=== PATIENT | female | born 1955 | race African-American/Black ===

== ENCOUNTER 2017-09-04 10:53 | Emergency (ER) | payer OTHER ==
[~2017-09-04] VITALS: Ht 162.6 cm; Wt 73.0 kg
[~2017-09-04 10:53] MED LIST: ALPR2TAB97 PO; AMLO10TA4 PO; ASPI-864 PO; CARI350T PO; DIAZ10TA PO; FAMO40TA7 PO; LIP40 PO; METF500T4 PO; NITR0.4T SL
[2017-09-04] MEDS ORDERED: HYDROCODONE/ACETAMINOPHEN 5/325MG TABLET PO ONE (12:30)
[2017-09-04 13:00] VITALS: BP 155/79
== END 2017-09-04 14:44 | disposition home or self-care (01) ==
LOC: ER 10:53
DX: M79.662 Pain in left lower leg (principal); G89.29 Other chronic pain; K21.9 Gastro-esophageal reflux disease without esophagitis; J44.9 Chronic obstructive pulmonary disease, unspecified; I10 Essential (primary) hypertension; F14.10 Cocaine abuse, uncomplicated; F12.10 Cannabis abuse, uncomplicated; F17.200 Nicotine dependence, unspecified, uncomplicated; Z79.82 Long term (current) use of aspirin; Z90.49 Acquired absence of other specified parts of digestive tract; Z90.710 Acquired absence of both cervix and uterus; Z98.890 Other specified postprocedural states
CPT/HCPCS: 73552; 73562; 73590; 99284

== ENCOUNTER 2018-05-09 15:46 | Emergency (ER) | payer OTHER ==
[~2018-05-09] VITALS: Ht 167.6 cm; Wt 84.0 kg
[~2018-05-09 15:46] MED LIST changes: -AMLO10TA4 PO; +ATEN50TA PO; -DIAZ10TA PO; +HYDR12.529 PO; +LORA2VIA33 PO; -METF500T4 PO; +METF500T6 PO; +OXYC30TA89 PO
[2018-05-09] MEDS ORDERED: NITROGLYCERIN 0.4MG TABLET SL SL PRN (16:30)
[2018-05-09] MEDS ORDERED: ASPIRIN 325MG EC TABLET PO ONE (16:30)
[2018-05-09] MEDS ORDERED: ONDANSETRON HCL 4MG/2ML VIAL IV ONE (16:30)
[2018-05-09 16:41] LABS: CHLORIDE 108 mEq/L (98-107)
[2018-05-09 16:42] LABS: BASOPHILS % 0.8 % (0.0-2.0); EOSINOPHILS % 0.1 % (0.0-5.0); HEMATOCRIT. 41.2 % (36.0-48.0); HEMOGLOBIN. 14.2 g/dL (12.0-16.0); LYMPHOCYTES % 42.6 % (20.0-50.0); MEAN CORPUSCULAR VOLUME 87.4 fL (81.0-99.0); MEAN PLATELET VOLUME 10.5 fl (7.4-10.4); MONOCYTES % 8.7 % (2.0-8.0); NEUTROPHILS % 47.8 % (40.0-76.0); PLATELET 189 x1000/uL (130-400); RED BLOOD CELL COUNT 4.72 mill/uL (4.2-5.4)
[2018-05-09 16:44] LABS: INR 1.1; PARTIAL THROMBOPLASTIN TIME 29.1 sec (23.4-31.0); PROTHROMBIN TIME 11.9 sec (9.4-11.6)
[2018-05-09] MEDS ORDERED: MORPHINE SULFATE 4 MG/ML CPJ (NOT FOR IM USE) IV ONE (16:45)
[2018-05-09 17:34] VITALS: BP 211/111
== END 2018-05-10 08:47 | disposition short-term general hospital (02) ==
LOC: ER 15:46
DX: I21.3 ST elevation (STEMI) myocardial infarction of unspecified site (principal); E78.00 Pure hypercholesterolemia, unspecified; E11.9 Type 2 diabetes mellitus without complications; I10 Essential (primary) hypertension; F17.200 Nicotine dependence, unspecified, uncomplicated; Z88.6 Allergy status to analgesic agent; Z79.82 Long term (current) use of aspirin; Z90.49 Acquired absence of other specified parts of digestive tract; Z92.29 Personal history of other drug therapy; Z91.048 Other nonmedicinal substance allergy status; Z96.659 Presence of unspecified artificial knee joint
CPT/HCPCS: 36415; 71045; 80053; 83690; 84484; 85025; 85610; 85730; 93005; 96374; 96375; 99291; J2270; J2405; Z7610

== ENCOUNTER 2018-08-10 09:43 | Emergency (ER) | payer OTHER ==
[~2018-08-10] VITALS: Ht 170.2 cm; Wt 76.0 kg
[~2018-08-10 09:43] MED LIST changes: -CARI350T PO; +S350 PO
[2018-08-10] MEDS ORDERED: MORPHINE SULFATE 4 MG/ML CPJ (NOT FOR IM USE) IV STA (10:21)
[2018-08-10] MEDS ORDERED: MAGNESIUM/ALUMINUM HYDROXIDE/SIMETHICONE 30ML UDC PO STA (10:21)
[2018-08-10] MEDS ORDERED: ONDANSETRON HCL 4MG/2ML INJ IV STA (10:21)
[2018-08-10 10:39] LABS: HEMATOCRIT. 40.7 % (36.0-48.0); HEMOGLOBIN. 13.7 g/dL (12.0-16.0); LYMPHOCYTES % 45.4 % (20.0-50.0); MEAN CORPUSCULAR HEMOGLOBIN 29.7 pg (28.0-32.0); MEAN CORPUSCULAR VOLUME 88.4 fL (81.0-99.0); MEAN PLATELET VOLUME 10.1 fl (7.4-10.4); MONOCYTES % 8.3 % (2.0-8.0); NEUTROPHILS % 45.3 % (40.0-76.0); PLATELET 226 x1000/uL (130-400); RED CELL DISTRIBUTION WIDTH 15.1 % (11.6-14.6)
[2018-08-10 10:45] LABS: CHLORIDE 108 mEq/L (98-107)
[2018-08-10 10:46] LABS: CLARITY URINE CLEAR (CLEAR); COLOR URINE YELLOW (YELLOW); KETONES URINE NEGATIVE (NEGATIVE); LEUKOCYTE ESTERASE URINE NEGATIVE (NEGATIVE); NITRITE URINE NEGATIVE (NEGATIVE); OCCULT BLOOD URINE NEGATIVE (NEGATIVE); PROTEIN URINE NEGATIVE (NEGATIVE)
[2018-08-10 10:46] LABS: PROTHROMBIN TIME 10.5 sec (9.1-11.1)
[2018-08-10] MEDS ORDERED: KETOROLAC 15MG/ML VIAL IV ONE (11:45)
[2018-08-10] MEDS ORDERED: LORAZEPAM 2MG/ML CPJ IV ONE (12:15)
[2018-08-10] MEDS ORDERED: HYDROCODONE/ACETAMINOPHEN 5/325MG TABLET PO ONE ×2 (14:30)
[2018-08-10] MEDS ORDERED: HYDRALAZINE 20MG/ML VIAL IV ONE (14:45)
[2018-08-10 15:09] VITALS: BP 198/96
[2018-08-10] MEDS ORDERED: NITROGLYCERIN 0.4MG TABLET SL SL ONE (15:15)
== END 2018-08-10 15:13 | disposition home or self-care (01) ==
LOC: ER 09:43
DX: R10.32 Left lower quadrant pain (principal); R11.2 Nausea with vomiting, unspecified; R05 Cough; R03.0 Elevated blood-pressure reading, without diagnosis of hypertension; I25.2 Old myocardial infarction; Z95.5 Presence of coronary angioplasty implant and graft
CPT/HCPCS: 36415; 71045; 74176; 80053; 81003; 83690; 84484; 85025; 85610; 93005; 96374; 96375; 99285; J1885; J2060; J2270; J2405; Z7610

== ENCOUNTER 2019-06-15 11:31 | Emergency (ER) | payer OTHER ==
[~2019-06-15] VITALS: Ht 167.6 cm; Wt 73.0 kg
[~2019-06-15 11:31] MED LIST changes: -ATEN50TA PO; -FAMO40TA7 PO; -LORA2VIA33 PO; -METF500T6 PO
[2019-06-15] MEDS ORDERED: ASPIRIN 81MG TABLET PO ONE (12:00)
[2019-06-15 12:23] LABS: BASOPHILS % 0.4 % (0.0-2.0); EOSINOPHILS % 0.3 % (0.0-5.0); HEMATOCRIT. 40.6 % (36.0-48.0); HEMOGLOBIN. 13.9 g/dL (12.0-16.0); LYMPHOCYTES % 46.1 % (20.0-50.0); MEAN CORPUSCULAR HEMOGLOBIN 30.5 pg (28.0-32.0); MEAN CORPUSCULAR VOLUME 89.1 fL (81.0-99.0); MEAN PLATELET VOLUME 10.9 fl (7.4-10.4); MONOCYTES % 6.5 % (2.0-8.0); NEUTROPHILS % 46.7 % (40.0-76.0); PLATELET 200 x1000/uL (130-400); RED BLOOD CELL COUNT 4.56 mill/uL (4.2-5.4); RED CELL DISTRIBUTION WIDTH 13.9 % (11.6-14.6)
[2019-06-15 12:28] LABS: CHLORIDE 108 mEq/L (98-107)
[2019-06-15] MEDS ORDERED: ONDANSETRON HCL 4MG/2ML INJ IV ONE (12:30)
[2019-06-15] MEDS ORDERED: MORPHINE SULFATE 4 MG/ML CPJ (NOT FOR IM USE) IV ONE (12:30)
[2019-06-15] MEDS ORDERED: HYDRALAZINE 20MG/ML VIAL IV ONE (12:45)
[2019-06-15 12:52] VITALS: BP 222/79
== END 2019-06-15 13:41 | disposition short-term general hospital (02) ==
LOC: ER 11:53
DX: I21.3 ST elevation (STEMI) myocardial infarction of unspecified site (principal); I16.1 Hypertensive emergency; E87.6 Hypokalemia; R79.89 Other specified abnormal findings of blood chemistry; I11.9 Hypertensive heart disease without heart failure; E78.5 Hyperlipidemia, unspecified; I25.10 Atherosclerotic heart disease of native coronary artery without angina pectoris; F17.200 Nicotine dependence, unspecified, uncomplicated; Z90.710 Acquired absence of both cervix and uterus; Z95.5 Presence of coronary angioplasty implant and graft; Z91.041 Radiographic dye allergy status; Z88.6 Allergy status to analgesic agent; Z79.899 Other long term (current) drug therapy
CPT/HCPCS: 36415; 71045; 80053; 83880; 84484; 85025; 93005; 96374; 96375; 99291; J0360; J2270; J2405; Z7610

== ENCOUNTER 2025-03-25 21:59 | Inpatient (IN) | payer MEDICARE, MEDICAID ==
[~2025-03-25] VITALS: Ht 160 cm; Wt 73.5 kg
[~2025-03-25 21:59] MED LIST changes: +ALBU05 IH; -ALPR2TAB97 PO; +AMLO10TA80 PO; +AMOX1TAB16 MT; +BENA40TA91 PO; +CYCL10TA21 PO; +ETOMIDATE 2MG/ML 10ML VIAL IV ONE; -HYDR12.529 PO; -LIP40 PO; +MAGN200T5 PO; +METF-414 PO; -NITR0.4T SL; +OMEP40CA20 PO; +OXYC-582 MT; -OXYC30TA89 PO; +P20 PO; +RISP2 PO; -S350 PO; +TRAZ-251 PO
[2025-03-25] MEDS: FUROSEMIDE 40MG/4ML VIAL IV ONE (23:04)
[2025-03-25] MEDS: HYDRALAZINE 20MG/ML VIAL IV ONE (23:05)
[2025-03-25 23:07] LABS: BASOPHILS % 0.6 % (0.0-2.0); DIFFERENTIAL COMMENT 0; HEMATOCRIT. 47.5 % (36.0-48.0); HEMOGLOBIN. 15.5 g/dL (12.0-16.0); LYMPHOCYTES % 35.2 % (20.0-50.0); MEAN CORPUSCULAR HEMOGLOBIN 28.8 pg (28.0-32.0); MEAN CORPUSCULAR HGB CONC 32.5 g/dL (31.0-37.0); MEAN CORPUSCULAR VOLUME 88.6 fL (81.0-99.0); MEAN PLATELET VOLUME 9.9 fl (7.4-10.4); MONOCYTES % 9.7 % (2.0-8.0); NEUTROPHILS % 54.5 % (40.0-76.0); PLATELET 185 x1000/uL (130-400); RED BLOOD CELL COUNT 5.36 mill/uL (4.2-5.4); RED CELL DISTRIBUTION WIDTH 17.2 % (11.6-14.6)
[2025-03-25] MEDS: METHYLPREDNISOLONE SOD SUCC 125MG/2ML (ACT-O-VIAL) IV STA (23:09)
[2025-03-25 23:13] LABS: CHLORIDE 106 mEq/L (98-107); POTASSIUM 3.7 mEq/L (3.5-5.1); SODIUM 144 mEq/L (136-145)
[2025-03-25 23:14] LABS: CARBON DIOXIDE 32 mEq/L (21-32)
[2025-03-25 23:15] LABS: CALCIUM 10.4 mg/dL (8.7-10.4)
[2025-03-25 23:19] LABS: CREATININE 0.8 mg/dL (0.6-1.0); GLUCOSE 163 mg/dL (70-105); UREA NITROGEN BLOOD 13 mg/dL (9-23)
[2025-03-25] MEDS: LABETALOL 5MG/ML 4ML INJ IV PRN (23:31)
[2025-03-25] MEDS ORDERED: PROPOFOL 10MG/ML 100ML 100 ML IV SCH (23:45)
[2025-03-25 23:54] VITALS: PULSE 82; RESP 27; O2SAT 98
[2025-03-25 23:54] LABS: TROPONIN I HIGH SENSITIVITY 56 ng/L (3.0-34)
[2025-03-25] MEDS: ALBUTEROL (0.083%) 2.5MG/3ML NEB HHN SCH (23:54)
[2025-03-25] MEDS: IPRATROPIUM BROMIDE (0.02%) 0.5MG/2.5ML NEB HHN STA (23:54)
[2025-03-25] MEDS: NICARDIPINE 40MG/200ML PREMIX 200 ML IV STA (23:59)
[2025-03-26] VITALS (99 sets, daily range): BP systolic 81–174; BP diastolic 46–101; PULSE 49–84; RESP 20–31; TEMP 36–36.7; O2SAT 93–100
[2025-03-26] MEDS: DEXAMETHASONE 10 MG/ML VIAL IV ONE (00:01)
[2025-03-26] MEDS ORDERED: NICARDIPINE 40MG/200ML PREMIX 200 ML IV PRN ×2 (00:15→01:44)
[2025-03-26] MEDS: LEVETIRACETAM 1000MG PREMIX 100 ML IV SCH ×2 (00:21→08:41)
[2025-03-26] MEDS: MANNITOL 20% 250 ML IV ONE (00:22)
[2025-03-26 00:52] LABS: BASOPHILS % 0.3 % (0.0-2.0); HEMATOCRIT. 42.3 % (36.0-48.0); HEMOGLOBIN. 13.7 g/dL (12.0-16.0); LYMPHOCYTES % 20.8 % (20.0-50.0); MEAN CORPUSCULAR HEMOGLOBIN 28.6 pg (28.0-32.0); MEAN CORPUSCULAR HGB CONC 32.4 g/dL (31.0-37.0); MEAN CORPUSCULAR VOLUME 88.2 fL (81.0-99.0); MEAN PLATELET VOLUME 9.9 fl (7.4-10.4); NEUTROPHILS % 73.9 % (40.0-76.0); PLATELET 153 x1000/uL (130-400); RED BLOOD CELL COUNT 4.79 mill/uL (4.2-5.4); RED CELL DISTRIBUTION WIDTH 17.2 % (11.6-14.6); WHITE BLOOD COUNT 5.7 x1000/uL (4.5-11.0)
[2025-03-26 00:55] LABS: BG BASE EXCESS -0.8 mmol/L (-2.0-3.0); BG CARBOXYHEMOGLOBIN 3.9 % (0.5-1.5); BG DEOXYHEMOGLOBIN 0.7 % (0.0-5.0); BG FRACTION INSPIRED OXYGEN 80; BG HCO3 ACT 23.9 mmol/L (21.0-28.0); BG METHEMOGLOBIN 0.2 % (0.5-1.5); BG OXYGEN SATURATION 99.3 % (94.0-98.0); BG OXYHEMOGLOBIN 95.2 % (94.0-98.0); BG PCO2 39.9 mmHg (32.0-45.0); BG PEEP (cmH2O) 0 cmH2O; BG PH 7.395 (7.350-7.450); BG PO2 178.8 mmHg (83.0-108.0); BG SAMPLE SITE RIGHT RADIAL; BG TOTAL HEMOGLOBIN 15.8 g/dL (12.0-16.0); BG VENT MODE VENT - AC
[2025-03-26 01:00] LABS: CHLORIDE 101 mEq/L (98-107); POTASSIUM 3.5 mEq/L (3.5-5.1); SODIUM 137 mEq/L (136-145)
[2025-03-26 01:01] LABS: CALCIUM 8.7 mg/dL (8.7-10.4); CARBON DIOXIDE 30 mEq/L (21-32)
[2025-03-26 01:06] LABS: CREATININE 0.8 mg/dL (0.6-1.0); GLUCOSE 213 mg/dL (70-105); UREA NITROGEN BLOOD 12 mg/dL (9-23)
[2025-03-26 01:08] LABS: ALANINE AMINOTRANSFERASE 17 IU/L (10-49); ALBUMIN 3.2 g/dL (3.2-4.8); ASPARTATE AMINOTRANSFERASE 19 IU/L (<34); PHOSPHORUS 2.3 mg/dL (2.5-4.9)
[2025-03-26 01:16] LABS: PROTEIN TOTAL 5.3 g/dL (6.0-8.3)
[2025-03-26 01:18] LABS: TROPONIN I HIGH SENSITIVITY 41 ng/L (3.0-34)
[2025-03-26 01:54] LABS: INR 1.2; PARTIAL THROMBOPLASTIN TIME 26.9 sec (23.4-31.0); PROTHROMBIN TIME 13.1 sec (9.6-11.0)
[2025-03-26] MEDS ORDERED: ACETAMINOPHEN 650MG SUPP PR PRN ×2 (02:00)
[2025-03-26] MEDS ORDERED: ACETAMINOPHEN 325MG TABLET PO PRN (02:00)
[2025-03-26] MEDS ORDERED: DEXTROSE 50% WATER 50ML SYRINGE IV PRN ×2 (02:00→04:15)
[2025-03-26] MEDS ORDERED: IPRATROPIUM/ALBUTEROL 0.5-3(2.5)MG/3ML NEB HHN PRN (02:00)
[2025-03-26] MEDS: PANTOPRAZOLE SODIUM 40 MG/VIAL IV NR (02:33)
[2025-03-26] MEDS: DEXT 5%/LACTATED RINGERS 1,000 ML IV SCH (02:33)
[2025-03-26] MEDS: MAGNESIUM 2 G PREMIX 50 ML IV NR (02:33)
[2025-03-26] MEDS: POTASSIUM PHOSPHATE 20 MMOL in DEXT 5% WATER 243.3333 ML IV NR (03:20)
[2025-03-26] MEDS: NICARDIPINE 100 MG in SODIUM CHLORIDE 0.9% 60 ML IV PRN (04:28)
[2025-03-26] MEDS: PROPOFOL 10MG/ML 100ML 100 ML IV PRN (04:52)
[2025-03-26] MEDS: FENTANYL 2500MCG/250ML PMX 250 ML IV PRN (06:17)
[2025-03-26] MEDS: DEXAMETHASONE 4MG/ML 1ML VIAL IV SCH ×2 (06:24→13:02)
[2025-03-26] MEDS: BLOOD SUGAR DIAGNOSTIC STRIP TEST SCH ×2 (06:25→08:00)
[2025-03-26] MEDS: INSULIN LISPRO 100 UNITS/ML SUBCUT SCH (06:27)
[2025-03-26 06:56] LABS: *AMPHETAMINES SCREEN URINE NEGATIVE (NEGATIVE); *BARBITURATES SCREEN URINE NEGATIVE (NEGATIVE); *BENZODIAZEPINES SCREEN URINE NEGATIVE (NEGATIVE); *COCAINE SCREEN URINE PRESUMPTIVE POSITIVE (NEGATIVE); CANNABINOID URINE SCREEN NEGATIVE (NEGATIVE); CLARITY URINE CLEAR (CLEAR); COLOR URINE YELLOW (YELLOW); ECSTASY MDMA SCREEN URINE NEGATIVE (NEGATIVE); GLUCOSE URINE NEGATIVE (NEGATIVE); KETONES URINE NEGATIVE (NEGATIVE); LEUKOCYTE ESTERASE URINE NEGATIVE (NEGATIVE); METHADONE URINE SCREEN NEGATIVE (NEGATIVE); NITRITE URINE NEGATIVE (NEGATIVE); OCCULT BLOOD URINE TRACE (NEGATIVE); OPIATES URINE SCREEN NEGATIVE (NEGATIVE); PH URINE 7.5 (4.5-8.0); PHENCYCLIDINE URINE SCREEN NEGATIVE (NEGATIVE); PROTEIN URINE NEGATIVE (NEGATIVE); SPECIFIC GRAVITY URINE 1.036 (1.005-1.030); UROBILINOGEN URINE 0.2 E.U./dL (0.2-1.0)
[2025-03-26 07:33] LABS: WBC URINE 0-2 /hpf (0-2)
[2025-03-26 07:34] LABS: BACTERIA URINE NONE SEEN
[2025-03-26] MEDS ORDERED: INSULIN LISPRO 100 UNITS/ML SUBCUT SCH (08:20)
[2025-03-26] MEDS: PANTOPRAZOLE SODIUM 40 MG/VIAL IV SCH (08:41)
[2025-03-26] MEDS: MAGNESIUM 4 G PREMIX 100 ML IV ONE (08:49)
[2025-03-26] MEDS: POTASSIUM PHOSPHATE 20 MMOL in DEXT 5% WATER 243.3333 ML IV ONE (08:49)
[2025-03-26 09:08] LABS: BG BASE EXCESS 3.7 mmol/L (-2.0-3.0); BG CARBOXYHEMOGLOBIN 0.3 % (0.5-1.5); BG DEOXYHEMOGLOBIN 2.8 % (0.0-5.0); BG FRACTION INSPIRED OXYGEN 40; BG HCO3 ACT 29.2 mmol/L (21.0-28.0); BG METHEMOGLOBIN 0.2 % (0.5-1.5); BG OXYGEN SATURATION 97.2 % (94.0-98.0); BG OXYHEMOGLOBIN 96.7 % (94.0-98.0); BG PCO2 46.2 mmHg (32.0-45.0); BG PH 7.418 (7.350-7.450); BG PO2 96.3 mmHg (83.0-108.0); BG SAMPLE SITE RIGHT RADIAL; BG TOTAL HEMOGLOBIN 19.1 g/dL (12.0-16.0); BG VENT MODE VENT - AC
[2025-03-26] MEDS: MORPHINE SULFATE 4 MG/ML INJ (FOR IV/IM USE) IV SCH (10:05)
[2025-03-26] MEDS: MORPHINE SULFATE 4 MG/ML INJ (FOR IV/IM USE) IV NR (10:06)
[2025-03-26] MEDS ORDERED: NALOXONE HCL 0.4MG/ML VIAL IV PRN (11:15)
[2025-03-26] MEDS: IPRATROPIUM/ALBUTEROL 0.5-3(2.5)MG/3ML NEB HHN SCH (11:48)
[2025-03-26 13:28] LABS: HEMATOCRIT 51.2 % (36.0-48.0); HEMOGLOBIN 16.3 g/dL (12.0-16.0)
[2025-03-26 14:08] LABS: CREATINE KINASE MB FRACTION 3.1 ng/mL (0.5-3.6)
[2025-03-26 18:43] LABS: CREATINE KINASE MB FRACTION 2.7 ng/mL (0.5-3.6)
[2025-03-27] VITALS (106 sets, daily range): BP systolic 88–155; BP diastolic 36–73; PULSE 47–76; RESP 24–29; TEMP 36.3–37; O2SAT 96–100
[2025-03-27] MEDS: MORPHINE SULFATE 4 MG/ML INJ (FOR IV/IM USE) IV PRN (03:51)
[2025-03-27 05:35] LABS: BASOPHILS % 0.1 % (0.0-2.0); HEMOGLOBIN. 14.9 g/dL (12.0-16.0); LYMPHOCYTES % 9.4 % (20.0-50.0); MEAN CORPUSCULAR HGB CONC 33.2 g/dL (31.0-37.0); MEAN CORPUSCULAR VOLUME 87.5 fL (81.0-99.0); MEAN PLATELET VOLUME 10.9 fl (7.4-10.4); MONOCYTES % 3.7 % (2.0-8.0); NEUTROPHILS % 86.8 % (40.0-76.0); PLATELET 216 x1000/uL (130-400); RED BLOOD CELL COUNT 5.14 mill/uL (4.2-5.4); RED CELL DISTRIBUTION WIDTH 17.4 % (11.6-14.6); WHITE BLOOD COUNT 10.5 x1000/uL (4.5-11.0)
[2025-03-27 05:36] LABS: CHLORIDE 104 mEq/L (98-107); POTASSIUM 4.1 mEq/L (3.5-5.1); SODIUM 143 mEq/L (136-145)
[2025-03-27 05:37] LABS: CALCIUM 9.1 mg/dL (8.7-10.4); CARBON DIOXIDE 27 mEq/L (21-32)
[2025-03-27 05:42] LABS: GLUCOSE 201 mg/dL (70-105); TRIGLYCERIDE 88 mg/dL (0-150); UREA NITROGEN BLOOD 27 mg/dL (9-23)
[2025-03-27 05:43] LABS: LDL CHOLESTEROL 57 mg/dL (5-100)
[2025-03-27 05:44] LABS: CHOLESTEROL 117 mg/dL (<200); HDL CHOLESTEROL 36 mg/dL (>65); PHOSPHORUS 5.9 mg/dL (2.5-4.9)
[2025-03-27 06:12] LABS: CREATININE 1.8 mg/dL (0.6-1.0)
[2025-03-27] MEDS: PROPOFOL 10MG/ML 100ML 100 ML IV PRN (22:41)
[2025-03-28] VITALS (104 sets, daily range): BP systolic 111–193; BP diastolic 49–106; PULSE 41–92; RESP 18–30; TEMP 36.3–37.1; O2SAT 87–100
[2025-03-28 06:06] LABS: CALCIUM 8.6 mg/dL (8.7-10.4)
[2025-03-28 06:14] LABS: HEMATOCRIT. 43.3 % (36.0-48.0); HEMOGLOBIN. 14.3 g/dL (12.0-16.0); MEAN CORPUSCULAR HEMOGLOBIN 28.6 pg (28.0-32.0); MEAN CORPUSCULAR HGB CONC 32.9 g/dL (31.0-37.0); MEAN CORPUSCULAR VOLUME 86.9 fL (81.0-99.0); MEAN PLATELET VOLUME 10.8 fl (7.4-10.4); PLATELET 197 x1000/uL (130-400); RED BLOOD CELL COUNT 4.99 mill/uL (4.2-5.4); RED CELL DISTRIBUTION WIDTH 17.7 % (11.6-14.6); WHITE BLOOD COUNT 10.8 x1000/uL (4.5-11.0)
[2025-03-28 06:31] LABS: CREATININE 2.5 mg/dL (0.6-1.0)
[2025-03-28 07:37] LABS: DIFFERENTIAL COMMENT 1
[2025-03-28 08:26] LABS: BG BASE EXCESS -0.2 mmol/L (-2.0-3.0); BG CARBOXYHEMOGLOBIN 0.5 % (0.5-1.5); BG DEOXYHEMOGLOBIN 1.4 % (0.0-5.0); BG FRACTION INSPIRED OXYGEN 40; BG HCO3 ACT 21.4 mmol/L (21.0-28.0); BG METHEMOGLOBIN 0.1 % (0.5-1.5); BG OXYGEN SATURATION 98.6 % (94.0-98.0); BG PCO2 26.8 mmHg (32.0-45.0); BG PO2 136.7 mmHg (83.0-108.0); BG SAMPLE SITE RIGHT RADIAL; BG TOTAL HEMOGLOBIN 13.3 g/dL (12.0-16.0); BG VENT MODE VENT - AC
[2025-03-28 14:36] LABS: ANISOCYTOSIS 1+; PLATELET ESTIMATE NORMAL
[2025-03-29] VITALS (114 sets, daily range): BP systolic 99–193; BP diastolic 28–101; PULSE 48–111; RESP 16–31; TEMP 36.4–37.1; O2SAT 87–100
[2025-03-29 05:23] LABS: BASOPHILS % 0.2 % (0.0-2.0); HEMATOCRIT. 45.5 % (36.0-48.0); LYMPHOCYTES % 9.4 % (20.0-50.0); MEAN PLATELET VOLUME 10.8 fl (7.4-10.4); MONOCYTES % 7.8 % (2.0-8.0); NEUTROPHILS % 82.6 % (40.0-76.0); PLATELET 203 x1000/uL (130-400); RED BLOOD CELL COUNT 5.18 mill/uL (4.2-5.4); RED CELL DISTRIBUTION WIDTH 17.4 % (11.6-14.6); WHITE BLOOD COUNT 10.8 x1000/uL (4.5-11.0)
[2025-03-29 05:52] LABS: CALCIUM 9.1 mg/dL (8.7-10.4); POTASSIUM 3.3 mEq/L (3.5-5.1)
[2025-03-29 06:22] LABS: CREATININE 1.6 mg/dL (0.6-1.0)
[2025-03-29 15:58] LABS: BG BASE EXCESS 0.8 mmol/L (-2.0-3.0); BG CARBOXYHEMOGLOBIN 0.8 % (0.5-1.5); BG DEOXYHEMOGLOBIN 5.3 % (0.0-5.0); BG FRACTION INSPIRED OXYGEN 30; BG HCO3 ACT 23.2 mmol/L (21.0-28.0); BG METHEMOGLOBIN 0.3 % (0.5-1.5); BG OXYGEN SATURATION 94.6 % (94.0-98.0); BG OXYHEMOGLOBIN 93.6 % (94.0-98.0); BG PCO2 31.6 mmHg (32.0-45.0); BG PH 7.484 (7.350-7.450); BG PO2 73.8 mmHg (83.0-108.0); BG SAMPLE SITE RIGHT RADIAL; BG TOTAL HEMOGLOBIN 16.2 g/dL (12.0-16.0); BG VENT MODE VENT - AC
[2025-03-29] MEDS: POTASSIUM CHLORIDE 20MEQ/PACKET PO NR (17:29)
[2025-03-29] MEDS ORDERED: NOREPINEPHRINE 8MG/250ML PMX 250 ML IV PRN (18:45)
[2025-03-30] VITALS (102 sets, daily range): BP systolic 94–190; BP diastolic 42–78; PULSE 49–123; RESP 15–34; TEMP 36.7–37.1; O2SAT 97–100
[2025-03-30] MEDS: DEXMEDETOMIDINE 400 MCG/100 ML 100 ML IV PRN (05:22)
[2025-03-30 05:44] LABS: BASOPHILS % 0.2 % (0.0-2.0); HEMATOCRIT. 44.8 % (36.0-48.0); HEMOGLOBIN. 14.3 g/dL (12.0-16.0); LYMPHOCYTES % 7.6 % (20.0-50.0); MEAN CORPUSCULAR HEMOGLOBIN 28.6 pg (28.0-32.0); MEAN CORPUSCULAR HGB CONC 31.8 g/dL (31.0-37.0); MEAN CORPUSCULAR VOLUME 89.9 fL (81.0-99.0); MONOCYTES % 7.6 % (2.0-8.0); NEUTROPHILS % 84.6 % (40.0-76.0); PLATELET 198 x1000/uL (130-400); RED BLOOD CELL COUNT 4.98 mill/uL (4.2-5.4); RED CELL DISTRIBUTION WIDTH 17.5 % (11.6-14.6); WHITE BLOOD COUNT 12.9 x1000/uL (4.5-11.0)
[2025-03-30 05:47] LABS: POTASSIUM 3.6 mEq/L (3.5-5.1)
[2025-03-30 05:48] LABS: CALCIUM 9.8 mg/dL (8.7-10.4)
[2025-03-30 05:53] LABS: CREATININE 1.2 mg/dL (0.6-1.0)
[2025-03-31] VITALS (104 sets, daily range): BP systolic 83–184; BP diastolic 39–121; PULSE 45–104; RESP 12–38; TEMP 36.8–37.8; O2SAT 94–100
[2025-03-31 05:31] LABS: BASOPHILS % 0.3 % (0.0-2.0); DIFFERENTIAL COMMENT 0; HEMATOCRIT. 44.8 % (36.0-48.0); HEMOGLOBIN. 14.6 g/dL (12.0-16.0); LYMPHOCYTES % 9.1 % (20.0-50.0); MEAN CORPUSCULAR HGB CONC 32.5 g/dL (31.0-37.0); MEAN CORPUSCULAR VOLUME 89.2 fL (81.0-99.0); MEAN PLATELET VOLUME 11.2 fl (7.4-10.4); MONOCYTES % 8.7 % (2.0-8.0); NEUTROPHILS % 81.9 % (40.0-76.0); PLATELET 207 x1000/uL (130-400); RED BLOOD CELL COUNT 5.03 mill/uL (4.2-5.4); RED CELL DISTRIBUTION WIDTH 17.2 % (11.6-14.6); WHITE BLOOD COUNT 11.2 x1000/uL (4.5-11.0)
[2025-03-31 05:57] LABS: POTASSIUM 3.8 mEq/L (3.5-5.1)
[2025-03-31 05:58] LABS: CALCIUM 9.5 mg/dL (8.7-10.4)
[2025-03-31 06:03] LABS: CREATININE 1.2 mg/dL (0.6-1.0)
[2025-03-31] MEDS: LABETALOL HCL 100MG TABLET PO SCH (09:25)
[2025-03-31] MEDS: ACETAMINOPHEN 650MG/20.3ML UDC PO PRN (11:15)
[2025-03-31] MEDS: MORPHINE SULFATE 4 MG/ML INJ (FOR IV/IM USE) IV PRN (12:15)
[2025-03-31] MEDS: CLONIDINE 0.2MG TABLET PO PRN (13:44)
[2025-03-31] MEDS ORDERED: DEXTROSE 50% WATER 50ML SYRINGE IV PRN (18:00)
[2025-03-31] MEDS: INSULIN LISPRO 100 UNITS/ML SUBCUT SCH (19:17)
[2025-03-31] MEDS ORDERED: INSULIN LISPRO 100 UNITS/ML SUBCUT SCH (21:00)
[2025-04-01] VITALS (107 sets, daily range): BP systolic 78–183; BP diastolic 46–133; PULSE 43–82; RESP 17–31; TEMP 37–38.3; O2SAT 88–100
[2025-04-01] MEDS: ETOMIDATE 2MG/ML 10ML VIAL IV ONE (08:40)
[2025-04-01] MEDS: SUCCINYLCHOLINE CHLORIDE 200MG/10ML IV ONE (08:45)
[2025-04-01] MEDS ORDERED: NALOXONE HCL 0.4MG/ML VIAL IV PRN (11:45)
[2025-04-01] MEDS: METOCLOPRAMIDE HCL 10MG/2ML VIAL IV SCH (11:59)
[2025-04-01 12:13] LABS: BASOPHILS % 0.4 % (0.0-2.0); DIFFERENTIAL COMMENT 0; EOSINOPHILS % 0.1 % (0.0-5.0); HEMATOCRIT. 41.6 % (36.0-48.0); HEMOGLOBIN. 13.5 g/dL (12.0-16.0); LYMPHOCYTES % 7.8 % (20.0-50.0); MEAN CORPUSCULAR HEMOGLOBIN 28.8 pg (28.0-32.0); MEAN CORPUSCULAR HGB CONC 32.6 g/dL (31.0-37.0); MEAN CORPUSCULAR VOLUME 88.5 fL (81.0-99.0); MEAN PLATELET VOLUME 11.2 fl (7.4-10.4); MONOCYTES % 11.6 % (2.0-8.0); NEUTROPHILS % 80.1 % (40.0-76.0); PLATELET 213 x1000/uL (130-400); RED CELL DISTRIBUTION WIDTH 16.9 % (11.6-14.6); WHITE BLOOD COUNT 11.9 x1000/uL (4.5-11.0)
[2025-04-01 12:16] LABS: CHLORIDE 118 mEq/L (98-107); POTASSIUM 3.5 mEq/L (3.5-5.1); SODIUM 152 mEq/L (136-145)
[2025-04-01 12:17] LABS: CALCIUM 9.3 mg/dL (8.7-10.4); CARBON DIOXIDE 23 mEq/L (21-32)
[2025-04-01] MEDS: AMLODIPINE 10MG TABLET PO NR (12:20)
[2025-04-01 12:22] LABS: GLUCOSE 215 mg/dL (70-105); UREA NITROGEN BLOOD 31 mg/dL (9-23)
[2025-04-01 12:24] LABS: ALANINE AMINOTRANSFERASE 39 IU/L (10-49); ALBUMIN 3.5 g/dL (3.2-4.8); ASPARTATE AMINOTRANSFERASE 44 IU/L (<34); BILIRUBIN TOTAL 1.9 mg/dL (0.1-1.0)
[2025-04-01] MEDS ORDERED: CEFEPIME 1GM IN DEXT 5% 50ML IV SCH (12:45)
[2025-04-01] MEDS: CLONIDINE 0.2MG TABLET PO SCH (13:55)
[2025-04-01] MEDS: CEFEPIME 2GM/50ML DUPLEX 50 ML IV SCH (14:45)
[2025-04-01] MEDS: VANCOMYCIN 1.25GM/250ML IV NR (15:15)
[2025-04-01] MEDS: IOHEXOL-350 100 ML BOTTLE ONE (23:45)
[2025-04-02] VITALS (108 sets, daily range): BP systolic 94–172; BP diastolic 48–111; PULSE 41–80; RESP 10–40; TEMP 35.7–38.2; O2SAT 95–100
[2025-04-02] MEDS: AMLODIPINE 10MG TABLET PO SCH (08:54)
[2025-04-02] MEDS: VANCOMYCIN 1G PREMIX 200 ML IV SCH (13:19)
[2025-04-02] MEDS: ACETAMINOPHEN 325MG TABLET PO PRN (17:03)
[2025-04-02] MEDS: CEFEPIME 2GM/50ML DUPLEX 50 ML IV SCH (17:04)
[2025-04-02] MEDS: HYDRALAZINE HCL 50MG TABLET PO SCH (20:36)
[2025-04-02 21:14] LABS: BASOPHILS % 0.3 % (0.0-2.0); HEMATOCRIT. 36.7 % (36.0-48.0); HEMOGLOBIN. 11.9 g/dL (12.0-16.0); LYMPHOCYTES % 14.9 % (20.0-50.0); MEAN CORPUSCULAR HEMOGLOBIN 28.7 pg (28.0-32.0); MEAN CORPUSCULAR HGB CONC 32.4 g/dL (31.0-37.0); MEAN CORPUSCULAR VOLUME 88.5 fL (81.0-99.0); MONOCYTES % 8.9 % (2.0-8.0); NEUTROPHILS % 75.9 % (40.0-76.0); RED BLOOD CELL COUNT 4.15 mill/uL (4.2-5.4); RED CELL DISTRIBUTION WIDTH 16.4 % (11.6-14.6)
[2025-04-02 21:18] LABS: DIFFERENTIAL COMMENT 1
[2025-04-02 21:20] LABS: CHLORIDE 119 mEq/L (98-107); POTASSIUM 3.3 mEq/L (3.5-5.1); SODIUM 149 mEq/L (136-145)
[2025-04-02 21:21] LABS: CALCIUM 8.6 mg/dL (8.7-10.4); CARBON DIOXIDE 21 mEq/L (21-32)
[2025-04-02 21:26] LABS: GLUCOSE 193 mg/dL (70-105); UREA NITROGEN BLOOD 30 mg/dL (9-23)
[2025-04-02 21:32] LABS: MEAN PLATELET VOLUME 11.1 fl (7.4-10.4); PLATELET 171 x1000/uL (130-400)
[2025-04-02] MEDS: POTASSIUM CHLORIDE 20MEQ TABLET SR PO NR (22:29)
[2025-04-03] VITALS (108 sets, daily range): BP systolic 98–187; BP diastolic 46–78; PULSE 44–86; RESP 14–42; TEMP 36.6–37.8; O2SAT 87–100
[2025-04-03] MEDS: HYDRALAZINE HCL 50MG TABLET PO SCH (01:45)
[2025-04-03 05:53] LABS: HEMATOCRIT 36.4 % (36.0-48.0); HEMOGLOBIN 11.7 g/dL (12.0-16.0); MEAN CORPUSCULAR HEMOGLOBIN 28.5 pg (28.0-32.0); MEAN CORPUSCULAR HGB CONC 32.2 g/dL (31.0-37.0); MEAN CORPUSCULAR VOLUME 88.6 fL (81.0-99.0); PLATELET 194 x1000/uL (130-400); RED BLOOD CELL COUNT 4.11 mill/uL (4.2-5.4); RED CELL DISTRIBUTION WIDTH 16.2 % (11.6-14.6); WHITE BLOOD COUNT 11.6 x1000/uL (4.5-11.0)
[2025-04-03 06:05] LABS: CHLORIDE 119 mEq/L (98-107); POTASSIUM 3.5 mEq/L (3.5-5.1); SODIUM 149 mEq/L (136-145)
[2025-04-03 06:06] LABS: CARBON DIOXIDE 22 mEq/L (21-32)
[2025-04-03 06:07] LABS: CALCIUM 8.6 mg/dL (8.7-10.4)
[2025-04-03 06:11] LABS: CREATININE 0.9 mg/dL (0.6-1.0); GLUCOSE 152 mg/dL (70-105); UREA NITROGEN BLOOD 29 mg/dL (9-23)
[2025-04-03] MEDS: LOSARTAN 100 MG TABLET PO SCH (09:40)
[2025-04-04] VITALS (104 sets, daily range): BP systolic 102–171; BP diastolic 46–88; PULSE 42–87; RESP 20–38; TEMP 36.7–38.2; O2SAT 95–100
[2025-04-04] MEDS: ACETAMINOPHEN 650MG/20.3ML UDC PO PRN (03:10)
[2025-04-04 06:31] LABS: CHLORIDE 117 mEq/L (98-107); POTASSIUM 3.3 mEq/L (3.5-5.1); SODIUM 150 mEq/L (136-145)
[2025-04-04 06:32] LABS: CALCIUM 9.1 mg/dL (8.7-10.4); CARBON DIOXIDE 23 mEq/L (21-32)
[2025-04-04 06:38] LABS: GLUCOSE 214 mg/dL (70-105); UREA NITROGEN BLOOD 24 mg/dL (9-23)
[2025-04-04] MEDS ORDERED: WATER IV ONE (10:30)
[2025-04-04] MEDS ORDERED: DEXT 5% IV ONE (10:30)
[2025-04-04] MEDS ORDERED: POTASSIUM CHLORIDE IV ONE (10:30)
[2025-04-04] MEDS: DEXTROSE 5% WATER 1,000 ML IV SCH (11:06)
[2025-04-04] MEDS: KCL 10MEQ/50ML X 3 FOR TOTAL KCL 30MEQ/150ML IV SCH (12:20)
[2025-04-04] MEDS: DEXMEDETOMIDINE 400 MCG/100 ML 100 ML IV PRN (15:36)
[2025-04-04 16:14] LABS: BG BASE EXCESS -2.5 mmol/L (-2.0-3.0); BG CARBOXYHEMOGLOBIN 0.1 % (0.5-1.5); BG DEOXYHEMOGLOBIN 2.5 % (0.0-5.0); BG FRACTION INSPIRED OXYGEN 30; BG HCO3 ACT 19.5 mmol/L (21.0-28.0); BG METHEMOGLOBIN 0.3 % (0.5-1.5); BG OXYGEN SATURATION 97.5 % (94.0-98.0); BG OXYHEMOGLOBIN 97.1 % (94.0-98.0); BG PCO2 26.3 mmHg (32.0-45.0); BG PH 7.487 (7.350-7.450); BG PO2 93.2 mmHg (83.0-108.0); BG SAMPLE SITE RIGHT RADIAL; BG TOTAL HEMOGLOBIN 12.8 g/dL (12.0-16.0); BG VENT MODE VENT - AC
[2025-04-05] VITALS (103 sets, daily range): BP systolic 110–151; BP diastolic 52–90; PULSE 41–54; RESP 19–31; TEMP 36.4–37.2; O2SAT 93–100
[2025-04-06] VITALS (80 sets, daily range): BP systolic 100–158; BP diastolic 47–112; PULSE 41–57; RESP 21–35; TEMP 36.4–37.8; O2SAT 90–100
[2025-04-06 05:43] LABS: CARBON DIOXIDE 21 mEq/L (21-32); CHLORIDE 108 mEq/L (98-107); POTASSIUM 3.2 mEq/L (3.5-5.1); SODIUM 140 mEq/L (136-145)
[2025-04-06 05:44] LABS: CALCIUM 8.9 mg/dL (8.7-10.4)
[2025-04-06 05:47] LABS: CREATININE 0.8 mg/dL (0.6-1.0)
[2025-04-06 05:49] LABS: GLUCOSE 255 mg/dL (70-105); UREA NITROGEN BLOOD 20 mg/dL (9-23)
[2025-04-06 05:55] LABS: BASOPHILS % 0.3 % (0.0-2.0); DIFFERENTIAL COMMENT 0; HEMATOCRIT. 40.8 % (36.0-48.0); HEMOGLOBIN. 13.4 g/dL (12.0-16.0); LYMPHOCYTES % 17.8 % (20.0-50.0); MEAN CORPUSCULAR HEMOGLOBIN 28.7 pg (28.0-32.0); MEAN CORPUSCULAR HGB CONC 32.8 g/dL (31.0-37.0); MEAN CORPUSCULAR VOLUME 87.6 fL (81.0-99.0); MEAN PLATELET VOLUME 11.9 fl (7.4-10.4); MONOCYTES % 7.3 % (2.0-8.0); NEUTROPHILS % 74.6 % (40.0-76.0); PLATELET 177 x1000/uL (130-400); RED BLOOD CELL COUNT 4.66 mill/uL (4.2-5.4); RED CELL DISTRIBUTION WIDTH 16.1 % (11.6-14.6); WHITE BLOOD COUNT 8.4 x1000/uL (4.5-11.0)
[2025-04-07] VITALS (79 sets, daily range): BP systolic 92–150; BP diastolic 47–92; PULSE 43–57; RESP 2–30; TEMP 36.7–37.1; O2SAT 75–99
[2025-04-07] MEDS ORDERED: NALOXONE HCL 0.4MG/ML VIAL IV PRN (11:30)
[2025-04-07] MEDS: MORPHINE SULFATE 2 MG/ML INJ (NOT FOR IM USE) IV PRN (11:49)
[2025-04-07] MEDS: MORPHINE SULFATE 250 MG in DEXT 5% WATER 225 ML IV PRN (13:17)
[2025-04-08] VITALS (34 sets, daily range): BP systolic 83–158; BP diastolic 38–66; PULSE 46–97; RESP 2–26; TEMP 36.1–36.8; O2SAT 29–79
== END 2025-04-09 00:53 | DRG 23 ==
LOC: ER 21:59 → MICUSO 03-26 → EDBEDREQSVC 03-26 00:20 → EDBEDREQTM 03-26 01:10 → EDBEDREQ 03-26 01:10 → 7EST 04-08 11:25
PROVIDERS: ADMIT Internal Medicine; ATTEND Internal Medicine
PROC: 009630Z Drainage of Cerebral Ventricle with Drainage Device, Percutaneous Approach (ICD-10-PCS; principal; 2025-03-26)
PROC: 5A1955Z Respiratory Ventilation, Greater than 96 Consecutive Hours (ICD-10-PCS; 2025-03-26)
PROC: 0BH17EZ Insertion of Endotracheal Airway into Trachea, Via Natural or Artificial Opening (ICD-10-PCS; 2025-03-26)
DX: I61.5 Nontraumatic intracerebral hemorrhage, intraventricular (principal); G93.41 Metabolic encephalopathy; J96.01 Acute respiratory failure with hypoxia; J96.02 Acute respiratory failure with hypercapnia; I16.1 Hypertensive emergency; J44.1 Chronic obstructive pulmonary disease with (acute) exacerbation; G91.9 Hydrocephalus, unspecified; I50.30 Unspecified diastolic (congestive) heart failure; J68.0 Bronchitis and pneumonitis due to chemicals, gases, fumes and vapors; Z99.11 Dependence on respirator [ventilator] status; I61.8 Other nontraumatic intracerebral hemorrhage; Z20.822 Contact with and (suspected) exposure to COVID-19; E83.39 Other disorders of phosphorus metabolism; H11.003 Unspecified pterygium of eye, bilateral; I25.10 Atherosclerotic heart disease of native coronary artery without angina pectoris; E83.42 Hypomagnesemia; F14.10 Cocaine abuse, uncomplicated; I11.0 Hypertensive heart disease with heart failure; E11.9 Type 2 diabetes mellitus without complications; E78.5 Hyperlipidemia, unspecified; Z51.5 Encounter for palliative care; Z66 Do not resuscitate; Z79.84 Long term (current) use of oral hypoglycemic drugs; Z79.899 Other long term (current) drug therapy; Z91.041 Radiographic dye allergy status; Z88.8 Allergy status to other drugs, medicaments and biological substances; Z95.5 Presence of coronary angioplasty implant and graft; I25.2 Old myocardial infarction
CPT/HCPCS: 31500; 31720; 36415; 36600; 70496; 70498; 71045; 80048; 80053; 80061; 80202; 80305; 81003; 82330; 82375; 82550; 82553; 82805; 82962; 83036; 83605; 83735; 83880; 84100; 84443; 84478; 84484; 85014; 85018; 85025; 85027; 86850; 86900; 87070; 87077; 87426; 93005; 93970; 94002; 94003; 94070; 94640; 94664; 94760; 98960; 99291; A4565; A4606; A6261; J0330; J0360; J0692; J1100; J1815; J1940; J1953; J2270; J2470; J2704; J2765; J2919; J3010; J3370; J3475; J3480; J3490; J7050; J7060; J7070; J7121; Q9967